=== PATIENT | female | born 1930 | race Hispanic/Latino ===

== ENCOUNTER 2017-11-20 05:58 | Observation (INO) | payer OTHER, MEDICARE ==
[~2017-11-20] VITALS: Ht 149.9 cm; Wt 73.8 kg
[2017-11-20] MEDS ORDERED: IOPAMIDOL-370 75 ML VIAL IV ONE (07:37)
[2017-11-20 08:06] LABS: BASOPHILS % (AUTO) 0.4 % (0.0-5.0); EOSINOPHILS % (AUTO) 0.2 % (0.0-8.0); HEMATOCRIT 40.1 % (36-48); MEAN CORPUSCULAR HEMOGLOBIN 29.3 pg (27.0-33.0); MEAN CORPUSCULAR HGB CONC 33.5 g/dL (32.0-36.0); MEAN CORPUSCULAR VOLUME 87.6 fL (79-99); MONOCYTES % (AUTO) 5.7 % (3.0-13.0); NEUTROPHILS % (AUTO) 79.7 % (40.0-77.0); NUCLEATED RED BLOOD CELLS 0.1 % (0.0-0.19); PLATELET COUNT (AUTO) 201 K/uL (130-400); RED BLOOD CELL COUNT(AUTO) 4.58 MIL/uL (4.00-5.50); RED CELL DISTRIBUTION WIDTH 13.9 % (11.0-15.5); WHITE BLOOD COUNT (AUTO) 6.3 K/uL (4.8-10.8)
[2017-11-20 08:14] LABS: CREATININE 0.7 mg/dL (0.5-1.5); POTASSIUM 3.7 mmol/L (3.5-5.1)
[2017-11-20] MEDS ORDERED: KETOROLAC TROMETHAMINE 15MG/ML ONE (14:29)
[2017-11-20] MEDS ORDERED: LATA2.5D2 OP (16:55)
[2017-11-20] MEDS ORDERED: CARB1TAB20 PO (16:55)
[2017-11-20] MEDS ORDERED: GABA-529 PO (16:55)
[2017-11-20] MEDS ORDERED: FURO40TA5 PO (16:55)
[2017-11-20] MEDS ORDERED: OMEP40CA37 PO (16:55)
[2017-11-20] MEDS ORDERED: AMLO5TAB2 PO (16:55)
[2017-11-20] MEDS ORDERED: DOCU100C33 PO (16:55)
[2017-11-20] MEDS ORDERED: LORA10CA9 PO (16:55)
[2017-11-20] MEDS ORDERED: BRIM5DRO4 OP (16:55)
[2017-11-20 17:28] VITALS: BP 128/71
[2017-11-20] MEDS ORDERED: ACETAMINOPHEN 325 MG TAB PO PRN (17:45)
[2017-11-20] MEDS ORDERED: KETOROLAC TROMETHAMINE 30MG/ML IV PRN (20:00)
[2017-11-20 20:01] VITALS: BP 128/74
[2017-11-20] MEDS: LATANOPROST 2.5 ML DROPS OP SCH (20:27)
[2017-11-20] MEDS: BRIMONIDINE TARTRATE 0.2% 5 ML BOTTLE OP SCH (20:27)
[2017-11-20] MEDS: GABAPENTIN 100 MG CAPSULE PO SCH (20:29)
[2017-11-20] MEDS: CARBIDOPA-LEVODOPA 25-100 TAB PO SCH (20:29)
[2017-11-20] MEDS: FUROSEMIDE 40 MG TABLET PO SCH (20:30)
[2017-11-21 00:43] VITALS: BP 138/66
[2017-11-21 04:27] VITALS: BP 130/73
[2017-11-21] MEDS: BRIMONIDINE TARTRATE 0.2% 5 ML BOTTLE OP SCH ×2 (09:00→21:16)
[2017-11-21] MEDS: DOCUSATE SODIUM 100 MG CAP PO SCH (09:29)
[2017-11-21] MEDS: PANTOPRAZOLE SODIUM 40 MG TABLET.DR PO SCH (09:30)
[2017-11-21] MEDS: GABAPENTIN 100 MG CAPSULE PO SCH ×3 (09:30→21:15)
[2017-11-21] MEDS: LORATADINE 10 MG TABLET PO SCH (09:30)
[2017-11-21] MEDS: AMLODIPINE BESYLATE 5 MG TAB PO SCH (09:30)
[2017-11-21] MEDS: FUROSEMIDE 40 MG TABLET PO SCH ×2 (09:30→21:15)
[2017-11-21] MEDS: CARBIDOPA-LEVODOPA 25-100 TAB PO SCH ×3 (09:30→21:15)
[2017-11-21 11:00] VITALS: BP 124/63
[2017-11-21 16:00] VITALS: BP 148/79
[2017-11-21 20:00] VITALS: BP 127/76
[2017-11-21] MEDS: LATANOPROST 2.5 ML DROPS OP SCH (21:16)
[2017-11-22 00:20] VITALS: BP 115/57
[2017-11-22 05:00] VITALS: BP 135/75
[2017-11-22 05:41] LABS: HEMATOCRIT 39.8 % (36-48); MEAN CORPUSCULAR HEMOGLOBIN 29.7 pg (27.0-33.0); MEAN CORPUSCULAR HGB CONC 33.9 g/dL (32.0-36.0); MEAN CORPUSCULAR VOLUME 87.5 fL (79-99); PLATELET COUNT (AUTO) 203 K/uL (130-400); RED BLOOD CELL COUNT(AUTO) 4.56 MIL/uL (4.00-5.50); RED CELL DISTRIBUTION WIDTH 13.9 % (11.0-15.5); WHITE BLOOD COUNT (AUTO) 7.9 K/uL (4.8-10.8)
[2017-11-22 06:11] LABS: CREATININE 0.7 mg/dL (0.5-1.5); POTASSIUM 3.6 mmol/L (3.5-5.1)
[2017-11-22 07:30] VITALS: BP 152/71
[2017-11-22] MEDS: LORATADINE 10 MG TABLET PO SCH (08:43)
[2017-11-22] MEDS: CARBIDOPA-LEVODOPA 25-100 TAB PO SCH ×2 (08:43→15:41)
[2017-11-22] MEDS: GABAPENTIN 100 MG CAPSULE PO SCH ×2 (08:43→15:41)
[2017-11-22] MEDS: DOCUSATE SODIUM 100 MG CAP PO SCH (08:43)
[2017-11-22] MEDS: AMLODIPINE BESYLATE 5 MG TAB PO SCH (08:43)
[2017-11-22] MEDS: PANTOPRAZOLE SODIUM 40 MG TABLET.DR PO SCH (08:44)
[2017-11-22] MEDS: FUROSEMIDE 40 MG TABLET PO SCH (08:44)
[2017-11-22] MEDS: BRIMONIDINE TARTRATE 0.2% 5 ML BOTTLE OP SCH (08:48)
[2017-11-22 11:00] VITALS: BP 132/72
[2017-11-22] MEDS ORDERED: LACTULOSE 20 GM/30 ML UDCUP PO PRN (13:00)
[2017-11-22 16:00] VITALS: BP 141/76
[2017-11-22] MEDS ORDERED: IBUPROFEN 400 MG TABLET ONE (16:43)
[2017-11-22] MEDS ORDERED: IBUPROFEN 200 MG TAB PO SCH (16:45)
== END 2017-11-22 17:00 ==
LOC: EDH 05:58 → EDHIP 11:30 → 4BH 16:26
PROVIDERS: ADMIT Internal Medicine; ATTEND Internal Medicine
DX: S12.110A Anterior displaced Type II dens fracture, initial encounter for closed fracture (principal); K21.9 Gastro-esophageal reflux disease without esophagitis; J30.2 Other seasonal allergic rhinitis; I10 Essential (primary) hypertension; H40.9 Unspecified glaucoma; G20 Parkinson's disease; W06.XXXA Fall from bed, initial encounter; Y93.89 Activity, other specified; Y92.89 Other specified places as the place of occurrence of the external cause; Y99.8 Other external cause status
CPT/HCPCS: 36415 ×2; 70450; 70498; 72125; 80048 ×2; 85025; 85027; 96374; 97039; 97116 ×2; 97161; 99285; G0378 ×53; G8978; G8979; G8980; G8981; G8982; G8983; J1885 ×2; Q9967

== ENCOUNTER → 2018-01-07 | Outpatient (CLI) | payer OTHER, MEDICARE ==
[~2018-01-07] MED LIST: AMLO5TAB2 PO; BRIM5DRO4 OP; CARB1TAB20 PO; DOCU100C33 PO; FURO40TA5 PO; GABA-529 PO; LATA2.5D2 OP; LORA10CA9 PO; OMEP40CA37 PO
== END | disposition home or self-care (01) ==
LOC: OIH 10:49
PROVIDERS: ATTEND Neurological Surgery
DX: S12.100A Unspecified displaced fracture of second cervical vertebra, initial encounter for closed fracture (principal); M47.892 Other spondylosis, cervical region; X58.XXXA Exposure to other specified factors, initial encounter; Y93.89 Activity, other specified; Y92.89 Other specified places as the place of occurrence of the external cause; Y99.8 Other external cause status
CPT/HCPCS: 72125

== ENCOUNTER → 2020-11-11 | Outpatient (CLI) | payer OTHER, MEDICARE ==
[~2020-11-11] MED LIST changes: +AMLO-257 PO; -AMLO5TAB2 PO; +LATA2.5D14 OP; -LATA2.5D2 OP; +OMEP40CA13 PO; -OMEP40CA37 PO
== END | disposition home or self-care (01) ==
LOC: RAH 11:09
PROVIDERS: ATTEND Family Medicine
DX: N85.8 Other specified noninflammatory disorders of uterus (principal); K40.90 Unilateral inguinal hernia, without obstruction or gangrene, not specified as recurrent
CPT/HCPCS: 76856